=== PATIENT | female | born 1950 | race Two or more races ===

== ENCOUNTER 2019-04-04 14:42 | Emergency (ER) | payer MEDICARE, OTHER ==
[2019-04-04] MEDS ORDERED: ONDANSETRON HCL INJ/PF 4 MG/2 ML SDV IV ONE (16:54)
[2019-04-04] MEDS ORDERED: FENTANYL CITRATE INJ/PF 100 MCG/2 ML AMPUL IV ONE (16:54)
--- NOTE | 2019-04-04 17:01 | ER Document Report ---
ED Medical Screen (RME) - General Chief Complaint: Back Pain Stated Complaint: BACK PAIN Time Seen by Provider: 04/04/19 16:30 Information source: Patient Notes: Patient presents with a 2-day history of low back pain. Patient states pain started after lifting a bag. Patient states that since then she has had worsening low back pain. Patient states today her pain is radiated around to her abdomen she has abdominal tenderness. Patient states she does have a history of trochanteric bursitis and fibromyalgia. Patient states that today she has felt dizzy lightheaded and felt faint. Patient states earlier today she had some chest pain but she attributes this to an increase in her low back pain. Patient presently denies chest pain. Patient does report nausea no vomiting. hx: Luke, hypothyroid, dyslipidemia, trochanteric bursitis, fibromyalgia I have greeted and performed a rapid initial assessment of this patient. A comprehensive ED assessment and evaluation of the patient, analysis of test resu lts and completion of the medical decision making process will be conducted by additional ED providers. TRAVEL OUTSIDE OF THE [place] IN LAST 30 DAYS: No - Related Data Allergies/Adverse Reactions: escitalopram [From Lexapro] Allergy (Verified 04/04/19 14:53) Physical Exam - Vital signs Vitals: Temp Pulse Resp BP Pulse Ox 97.8 F 87 18 152/79 H 100 04/04/19 15:11 04/04/19 15:11 04/04/19 15:11 04/04/19 15:11 04/04/19 15:11 - General General appearance: Alert, Anxious Notes: Lower lumbar tenderness - Abdominal Tenderness: Tender - Lower pelvic tenderness Course - Vital Signs Vital signs: Temp Pulse Resp BP Pulse Ox 97.8 F 87 18 152/79 H 100 04/04/19 15:11 04/04/19 15:11 04/04/19 15:11 04/04/19 15:11 04/04/19 15:11
--- NOTE | 2019-04-04 17:51 | RADIOLOGY REPORT (SQ) ---
EXAM DESCRIPTION: CHEST 2 VIEWS COMPLETED DATE/TIME: 04/04/2019 5:38 pm REASON FOR STUDY: cp, lightheaded, low back pain COMPARISON: None. EXAM PARAMETERS: NUMBER OF VIEWS: two views TECHNIQUE: Digital Frontal and Lateral radiographic views of the chest acquired. RADIATION DOSE: NA LIMITATIONS: none FINDINGS: LUNGS AND PLEURA: No opacities, masses or pneumothorax. No pleural effusion. MEDIASTINUM AND HILAR STRUCTURES: No masses or contour abnormalities. HEART AND VASCULAR STRUCTURES: Heart normal size. No evidence for failure. BONES: No acute findings. HARDWARE: None in the chest. OTHER: No other significant finding. IMPRESSION: NO ACUTE RADIOGRAPHIC FINDING IN THE CHEST. TECHNICAL DOCUMENTATION: JOB ID: [id number] [employer]- All Rights Reserved Reading location - IP/workstation name: [email or web address]
--- NOTE | 2019-04-04 17:52 | RADIOLOGY REPORT (SQ) ---
EXAM DESCRIPTION: L SPINE WHOLE COMPLETED DATE/TIME: 04/04/2019 5:38 pm REASON FOR STUDY: low back pain COMPARISON: None. NUMBER OF VIEWS: Five views including obliques. TECHNIQUE: AP, lateral, oblique, and sacral radiographic images acquired of the lumbar spine. LIMITATIONS: None. FINDINGS: MINERALIZATION: Normal. SEGMENTATION: Normal. No transitional anatomy. ALIGNMENT: Normal. VERTEBRAE: Maintained height. No fracture or worrisome bone lesion. DISCS: Multilevel disc space narrowing with osteophytes. POSTERIOR ELEMENTS: Pedicles and facets are intact. No pars defect or posterior arch defects. Facet arthropathy is present. HARDWARE: None in the spine. PARASPINAL SOFT TISSUES: Normal. PELVIS: Intact as visualized. No fractures or worrisome bone lesions. SI joints intact. OTHER: No other significant finding. IMPRESSION: SPONDYLOSIS WITHOUT BONE LESION OR FRACTURE. TECHNICAL DOCUMENTATION: JOB ID: [id number]- All Rights Reserved Reading location - IP/workstation name: [email or web address]
[2019-04-04 20:03] LABS: ABSOLUTE BASOPHILS # (AUTO) 0.1 10^3/uL (0.0-0.2); ABSOLUTE LYMPHOCYTES (AUTO) 1.4 10^3/uL (0.5-4.7); ABSOLUTE MONOCYTES (AUTO) 0.5 10^3/uL (0.1-1.4); ABSOLUTE NEUT (AUTO) 7.5 10^3/uL (1.7-8.2); BASOPHILS % (AUTO) 0.8 % (0-2); EOSINOPHILS % (AUTO) 0.2 % (0-6); HEMATOCRIT 43.4 % (36.0-47.0); HEMOGLOBIN 14.4 g/dL (12.0-15.5); LYMPHOCYTES % (AUTO) 14.8 % (13-45); MEAN CORPUSCULAR HEMOGLOBIN 30.7 pg (27.0-33.4); MEAN CORPUSCULAR HGB CONC 33.2 g/dL (32.0-36.0); MEAN CORPUSCULAR VOLUME 93 fl (80-97); MONOCYTES % (AUTO) 5.3 % (3-13); PLATELET COUNT 292 10^3/uL (150-450); RED BLOOD COUNT 4.68 10^6/uL (3.72-5.28); RED CELL DISTRIBUTION WIDTH 14.1 % (11.5-14.0); SEGMENTED NEUTROPHILS % (AUTO) 78.9 % (42-78); TOTAL CELLS COUNTED % (AUTO) 100 %; WHITE BLOOD COUNT 9.5 10^3/uL (4.0-10.5)
[2019-04-04 20:31] LABS: ALANINE AMINOTRANSFERASE 21 U/L (9-52); ALBUMIN 4.2 g/dL (3.5-5.0); ALKALINE PHOSPHATASE 83 U/L (38-126); ANION GAP 9 (5-19); ASPARTATE AMINO TRANSFERASE 34 U/L (14-36); BILIRUBIN,DIRECT 0.2 mg/dL (0.0-0.4); BILIRUBIN,TOTAL 0.6 mg/dL (0.2-1.3); BLOOD UREA NITROGEN 16 mg/dL (7-20); CALCIUM 9.5 mg/dL (8.4-10.2); CARBON DIOXIDE 29 mmol/L (22-30); CHLORIDE 103 mmol/L (98-107); GLUCOSE 104 mg/dL (75-110); POTASSIUM 3.9 mmol/L (3.6-5.0); SODIUM 140.9 mmol/L (137-145); TOTAL PROTEIN 7.6 g/dL (6.3-8.2)
[2019-04-04] MEDS ORDERED: METHOCARBAMOL 500 MG TABLET PO ONE (20:48)
[2019-04-04] MEDS ORDERED: KETOROLAC TROMETHAMINE INJ/PF 30 MG/1 ML SDV IV ONE (20:48)
[2019-04-04] MEDS ORDERED: LIDOCAINE 5% (700 MG) TRANSDERMAL ADH..PATCH TP ONE (20:48)
--- NOTE | 2019-04-04 20:49 | ER Document Report ---
ED General - General Chief Complaint: Back Pain Stated Complaint: BACK PAIN Time Seen by Provider: 04/04/19 16:30 Notes: Patient is a 68-year-old female with past medical history of fibromyalgia presenting with 2 days of progressively worsening low back pain. Patient states that she was lifting a heavy bag of clothing, felt an acute spasm in her low back. States that since then the pain is been getting progressively worse and upon waking up this morning was intolerable. Described as a throbbing, aching, constant pain to her low back. Has been trying naproxen and ibuprofen with minimal improvement. Movement worsens the pain denies any history of similar issues in the past. Denies bowel or bladder incontinence, urinary retention, weakness or numbness. States that it is difficult to ambulate secondary to the pain not due to weakness. States that she had some mild chest discomfort earlier this morning attributed to the severity of her back pain. Has not had chest pain over 8 hours at the time of my assessment. Denies any cardiac history. No shortness of breath. No history of aneurysms. Visiting from [place], has been unable to see her primary care doctor regarding today's concerns. TRAVEL OUTSIDE OF THE [place] IN LAST 30 DAYS: No - Related Data Allergies/Adverse Reactions: escitalopram [From Lexapro] Allergy (Verified 04/04/19 14:53) Past Medical History - General Information source: Patient - Social History Smoking Status: Never Smoker Frequency of alcohol use: None Drug Abuse: None Lives with: Family Family History: Reviewed & Not Pertinent Review of Systems - Review of Systems Notes: Constitutional: Negative for fever. HENT: Negative for sore throat. Eyes: Negative for visual changes. Cardiovascular: Positive for chest pain earlier today resolved for some time. Respiratory: Negative for shortness of breath. Gastrointestinal: Negative for abdominal pain, vomiting or diarrhea. Genitourinary: Negative for dysuria. Musculoskeletal: Positive for low back pain Skin: Negative for rash. Neurological: Negative for headaches, weakness or numbness. 10 point ROS negative except as marked above and in HPI. Physical Exam - Vital signs Vitals: Temp Pulse Resp BP Pulse Ox 97.8 F 87 18 152/79 H 100 04/04/19 15:11 04/04/19 15:11 04/04/19 15:11 04/04/19 15:11 04/04/19 15:11 Interpretation: Hypertensive Notes: PHYSICAL EXAMINATION: GENERAL: Appears moderately uncomfortable but in no overt distress HEAD: Atraumatic, normocephalic. EYES: Pupils equal round and reactive to light, extraocular movements intact, sclera anicteric, conjunctiva are normal. ENT: nares patent, oropharynx clear without exudates. Moist mucous membranes. NECK: Normal range of motion, supple without lymphadenopathy LUNGS: Breath sounds clear to auscultation bilaterally and equal. No wheezes rales or rhonchi. HEART: Regular rate and rhythm without murmurs ABDOMEN: Soft, nontender, normoactive bowel sounds. No guarding, no rebound. No masses appreciated. EXTREMITIES: Normal range of motion, no pitting or edema. No cyanosis. Back: No midline spinal tenderness, step-offs or deformities. NEUROLOGICAL: 5 out of 5 strength both distally and proximally bilateral lower extremities. 2+ patellar reflexes bilaterally. No clonus. Sensation grossly intact in the bilateral lower extremities. Patient is able to ambulate without difficulty. PSYCH: Normal mood, normal affect. SKIN: Warm, Dry, normal turgor, no rashes or lesions noted. Course - Re-evaluation Re-evalutation: 04/04/19 20:47 Patient presents with 2 days of low back pain now also having associated abdominal pain. She has no focal neurologic deficits on examination. 5 out of 5 both distally and proximally bilateral lower extremities with 2+ patellar and ankle reflexes. No clonus. Normal Babinski. Patient is able to ambulate although hesitantly. Chronic back exam she has no point tenderness, step-offs or deformities. Some diffuse spasming along the mona-lumbar spinous muscles. T he patient is having associated lower abdominal pain without any focal tenderness on abdominal exam. Labs unremarkable. L-spine x-ray normal. Will obtain a CT of the abdomen and pelvis to ensure that there is not an aortic component given abdominal and back pain as well as patient's advanced age. If this is normal plan for symptom medic treatment and follow-up. 04/04/19 23:40 CTA of the abdomen and pelvis shows no evidence of dissection. Patient's pain is much improved. At this time will discharge with return precautions and follow-up recommendations. Verbal discharge instructions given a the bedside and opportunity for questions given. Medication warnings reviewed. Patient is in agreement with this plan and has verbalized understanding of return precautions and the need for primary care follow-up in the next 24-72 hours. - Vital Signs Vital signs: Temp Pulse Resp BP Pulse Ox 97.5 F 74 16 145/83 H 97 04/05/19 03:28 04/05/19 03:28 04/05/19 01:03 04/05/19 03:28 04/05/19 03:28 - Laboratory Result Diagrams: 04/04/19 19:45 04/04/19 19:45 Laboratory results interpreted by me: 04/04/19 19:45 RDW 14.1 H Seg Neutrophils % 78.9 H - Diagnostic Test Radiology reviewed: Reports reviewed - EKG Interpretation by Me Additional EKG results interpreted by me: 04/05/19 05:15 Sinus rhythm, rate 76. No ST elevations or depressions. QTC is 495. Discharge - Discharge Clinical Impression: Lower abdominal pain Low back pain Qualifiers: Chronicity: acute Back pain laterality: bilateral Sciatica presence: without sciatica Qualified Code(s): M54.5 - Low back pain Condition: Good Disposition: HOME, SELF-CARE Additional Instructions: You have been seen in the Emergency Department (ED) today for back pain. Your workup and exam have not shown any acute abnormalities and you are likely suffering from muscle strain or possible problems with your discs, but there is no treatment that will fix your symptoms at this time. Please take the naproxen that has been prescribed as directed. You should also purchase a local lidocaine cream such as "aspercreme with lidocaine" and use per bottle instructions to the affected area. Apply heat to the area as often as you are able. Continue to keep active and avoid prolonged periods of bed rest. CT scan of your abdomen does not show any evidence of an aneurysm. Please follow up with your doctor as soon as possible regarding today's ED visit and your back pain. Return to the ED for worsening back pain, fever, weakness or numbness of either leg, or if you develop either (1) an inability to urinate or have bowel movements, or (2) loss of your ability to control your bathroom functions (if you start having "accidents"), or if you develop other new symptoms that concern you.concern you. Prescriptions: Methocarbamol [Robaxin 500 mg Tablet] 500 mg PO BID PRN #20 tablet PRN Reason: Naproxen 500 mg PO BID PRN #14 tablet PRN Reason: Oxycodone HCl [Oxycontin Ir 5 Mg Tablet] 1 tab PO Q4H PRN #8 tablet PRN Reason: For Pain
--- NOTE | 2019-04-04 22:34 | EKG REPORT ---
SEVERITY:- ABNORMAL ECG - SINUS RHYTHM SHAUN, CONSIDER BIATRIAL ABNORMALITIES BORDERLINE PROLONGED QT INTERVAL : Confirmed by: Mercedes Mcfarlane 04-Apr-2019 22:33:49
--- NOTE | 2019-04-04 22:37 | RADIOLOGY REPORT (SQ) ---
CT ABDOMEN PELVIS WITHOUT THEN WITH IV CONTRAST HISTORY: Abdominal and back pain. COMPARISON: None. TECHNIQUE: CT angiogram of the abdomen and pelvis with IV contrast. 3-D MIP images were obtained in coronal and sagittal reconstructions in post-processing. This exam was performed according to our departmental dose-optimization program, which includes automated exposure control, adjustment of the mA and/or kV according to patient size and/or use of iterative reconstruction technique. FINDINGS: The lung bases are clear. No pleural or pericardial effusions. There is no hiatal hernia. The liver, spleen, pancreas, gallbladder, adrenal glands, and kidneys are unremarkable. No urinary stones are seen. There has been a prior hysterectomy. No small bowel obstruction. The appendix is normal. There is no evidence of diverticulitis. No intraperitoneal free fluid or free air is identified. No evidence of aortic aneurysm or dissection. No high-grade ostial stenosis is seen at the major branches. No acute osseous findings. IMPRESSION: No evidence of aortic aneurysm or dissection.
[2019-04-05] MEDS ORDERED: MORPHINE SULFATE 10 MG/ML INJ IV PRN (01:08)
[2019-04-05] MEDS ORDERED: NORMAL SALINE 1000 ML 1,000 ML IV ONE (01:08)
[2019-04-05 03:47] VITALS: BP 145/83
== END 2019-04-05 03:48 | disposition home or self-care (01) ==
LOC: ER 14:42
DX: R10.30 Lower abdominal pain, unspecified (principal); M54.5 Low back pain; M54.9 Dorsalgia, unspecified; R07.9 Chest pain, unspecified; X50.0XXA Overexertion from strenuous movement or load, initial encounter
CPT/HCPCS: 93005; 99284; 96361; 96374; 96375; 36415; 85025; 80053; 84484; 71046; 72110; 74174; 93010; J3010; J1885; J2270; J2405; J7030